=== PATIENT | male | born 1985 | race Two or more races ===

== ENCOUNTER 2025-06-15 12:55 | Emergency (ER) | payer OTHER, SELFPAY ==
[~2025-06-15] VITALS: Ht 170.2 cm; Wt 67.0 kg
[2025-06-15 13:15] VITALS: BP 119/91; PULSE 68; RESP 12; TEMP 98.3; O2SAT 100
== END 2025-06-15 17:50 | disposition left against medical advice (07) ==
LOC: ER 12:55
DX: R68.89 Other general symptoms and signs (principal); Z53.21 Procedure and treatment not carried out due to patient leaving prior to being seen by health care provider